=== PATIENT | male | born 1970 | race Hispanic/Latino ===

== ENCOUNTER 2017-02-17 11:33 | Emergency (ER) | payer BC, OTHER ==
[2017-02-17 11:39] VITALS: BMI 34.0
[2017-02-17 11:42] VITALS: BP 135/96; PULSE 100; RESP 19; TEMP 97.9; O2SAT 98
--- NOTE | 2017-02-17 12:14 | RAD ---
PROCEDURE: Right Hand and 4th digit Radiographs. HISTORY: finger pain COMPARISON: None. FINDINGS: BONES: Normal. No fracture. JOINTS: Normal. No osteoarthritic changes. SOFT TISSUES: Normal. OTHER FINDINGS: None. IMPRESSION: Normal right hand radiographs.
--- NOTE | 2017-02-17 12:24 | ED PDOC ---
Arrival/HPI - General Chief Complaint: Finger,Hand,&Wrist Time Seen by Provider: 02/17/17 11:53 Historian: Patient - History of Present Illness Narrative History of Present Illness (Text): 02/17/17 12:23 46yo male with no PMhx who present with left 4th finger pain. 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 States pain with flexion. Denies any other complaint. Past Medical History - Provider Review Nursing Documentation Reviewed: Yes - Infectious Disease Hx of Infectious Diseases: None - Psychiatric Hx Substance Use: No - Surgical History Hx Cholecystectomy: Yes - Anesthesia Hx Anesthesia: Yes Hx Anesthesia Reactions: No Family/Social History - Physician Review Nursing Documentation Reviewed: Yes Family/Social History: Unknown Family HX Smoking Status: Never Smoked Hx Alcohol Use: No Hx Substance Use: No Allergies/Home Meds Allergies/Adverse Reactions: Allergies No Known Allergies Allergy (Verified 02/17/17 11:39) Review of Systems - Physician Review All systems were reviewed & negative as marked: Yes - Review of Systems Constitutional: Normal Eyes: Normal ENT: Normal Respiratory: Normal Cardiovascular: Normal Gastrointestinal: Normal Genitourinary Male: Normal Musculoskeletal: Arthralgias (LEft 4th finger pain) Skin: Normal Neurological: Normal Endocrine: Normal Hemo/Lymphatic: Normal Psychiatric: Normal Physical Exam Vital Signs Reviewed: Yes Vital Signs Temp Pulse Resp BP Pulse Ox 02/17/17 11:41 97.9 F 100 H 19 135/96 H 98 Temperature: Afebrile Blood Pressure: Normal Pulse: Regular Respiratory Rate: Normal Appearance: Positive for: Well-Appearing, Non-Toxic, Comfortable Pain Distress: None Mental Status: Positive for: Alert and Oriented X 3 - Systems Exam Head: Present: Atraumatic, Normocephalic Pupils: Present: PERRL Extroacular Muscles: Present: EOMI Conjunctiva: Present: Normal Mouth: Present: Moist Mucous Membranes Neck: Present: Normal Range of Motion Respiratory/Chest: Present: Clear to Auscultation, Good Air Exchange. No: Respiratory Distress, Accessory Muscle Use Cardiovascular: Present: Regular Rate and Rhythm, Normal S1, S2. No: Murmurs Abdomen: Present: Normal Bowel Sounds. No: Tenderness, Distention, Peritoneal Signs Back: Present: Normal Inspection Upper Extremity: Present: NORMAL PULSES, Tenderness (LEft 4th finger), Neurovascularly Intact. No: Cyanosis, Edema, Normal ROM (Limited on flexion secondary to pain), Swelling, Erythema, Temperature Abnormalties, Deformity Lower Extremity: Present: Normal Inspection. No: Edema Neurological: Present: GCS=15, CN II-XII Intact, Speech Normal Skin: Present: Warm, Dry, Normal Color. No: Rashes Psychiatric: Present: Alert, Oriented x 3, Normal Insight, Normal Concentration Medical Decision Making ED Course and Treatment: 02/17/17 18:54 Left hand xray - No acute fracture Finger splint placed Result was DW the pt. Referred to his PMD - RAD Interpretation Radiology Orders: 02/17/17 11:54 HAND LEFT 4TH DIGIT (FINGER) [RAD] Stat - Medication Orders Current Medication Orders: Discontinued Medications Ibuprofen (Motrin Tab) 600 mg PO STAT STA Stop: 02/17/17 11:56 Last Admin: 02/17/17 12:17 Dose: 600 mg Disposition/Present on Arrival - Present on Arrival Any Indicators Present on Arrival: No History of DVT/PE: No History of Uncontrolled Diabetes: No Urinary Catheter: No History of Decub. Ulcer: No History Surgical Site Infection Following: None - Disposition Have Diagnosis and Disposition been Completed?: Yes Diagnosis: Finger sprain Disposition: HOME/ ROUTINE Disposition Time: 12:30 Patient Plan: Discharge Condition: STABLE Discharge Instructions (ExitCare): Finger Sprain (ED) Additional Instructions: Follow up with your Doctor/Orthopedist Return to ED for any new or worsening symptoms Prescriptions: Ibuprofen [Motrin Tab] 600 mg PO Q6 #20 tab Referrals: Giovanni Ye III, MD [Medical Doctor] - Follow up with primary Forms: WORK NOTE
== END 2017-02-17 12:31 | disposition home or self-care (01) ==
LOC: ED 11:33
DX: S63.615A Unspecified sprain of left ring finger, initial encounter (principal); X58.XXXA Exposure to other specified factors, initial encounter